=== PATIENT | female | born 1950 | race African-American/Black ===

== ENCOUNTER 2016-03-03 17:30 | Observation (INO) | payer MEDICARE ==
[2016-03-03 17:58] LABS: ABG Draw Site Left Radial; ALLEN'S TEST PASS; BEb -4.5 (+/- 2)
--- NOTE | 2016-03-03 18:24 | DIRPT ---
CLINICAL DATA: Code stroke. Fell. Hit head. Patient unresponsive. EXAM: CT HEAD WITHOUT CONTRAST TECHNIQUE: Contiguous axial images were obtained from the base of the skull through the vertex without intravenous contrast. COMPARISON: None. FINDINGS: Age advanced cerebral atrophy, ventriculomegaly and periventricular white matter disease. No extra-axial fluid collections are identified. No CT findings for acute hemispheric infarction or intracranial hemorrhage. No mass lesions. The brainstem and cerebellum are normal. No acute bony findings. No skull fracture. The paranasal sinuses and mastoid air cells are clear. The globes are intact. IMPRESSION: Age advanced cerebral atrophy, ventriculomegaly and periventricular white matter disease. No acute findings. Electronically Signed By: Joanna Bustos M.D. On: 03/03/2016 18:22
--- NOTE | 2016-03-03 18:36 | EDPRACDOC ---
- General Information Stated Complaint: FALL Time Seen by Provider: 03/03/16 17:36 Information Source: Patient, [employer] Mode Of Arrival: Ambulance Home Medications: Home Medications Atorvastatin Calcium [Lipitor] 20 mg PO DAILY 01/21/16 Docusate Sodium 100 mg PO DAILY 01/21/16 Duloxetine [Cymbalta] 60 mg PO QAM 01/21/16 Ferrous Sulfate [Iron] 325 mg PO DAILY 01/21/16 Furosemide [Lasix] 40 mg PO DAILY 01/21/16 Gabapentin 100 mg PO TID 01/21/16 Glimepiride [Amaryl] 2 mg PO DAILY 01/21/16 Trazodone HCl 50 mg PO HS 01/21/16 Amlodipine Besylate [Norvasc] 2.5 mg PO DAILY 01/27/16 Insulin Glargine [Lantus] 20 units SQ QHS 01/27/16 Divalproex Sodium [Depakote Sprinkle] 1,000 mg PO DAILY #100 cap 01/28/16 Alprazolam [Xanax] 1 mg PO HS PRN 03/03/16 Polyethylene Glycol 3350 [Miralax] 17 gm PO DAILY PRN 03/03/16 Allergies/Adverse Reactions: Allergies Allergy/AdvReac Type Severity Reaction Status Date / Time cephalexin [From Keflex] Allergy Rash-Genera Verified 03/03/16 18:53 lized codeine Allergy Rash-Genera Verified 03/03/16 18:53 lized - History of Present Illness Onset: HOST/HOSTESS GROUND HPI: PT WAS GETTING OUT OF A [employer]AXI AT THE [employer] TO TAKE PAPERS OUT ON SOMEONE. SHE USES A WALKER AND SAID HER LEG WAS NOT WORKING. SHE FELL AND HIT HER HEAD. PT DID NOT LOSE CONSCIOUSNESS. SHE IS VERY SOMNOLENT ON EXAM AND IS UNABLE TO GIVE MUCH HX. THE ONLY TIME PT HAS BEEN HERE WAS FOR PSYCHIATRIC ISSUES. THERE IS NO FAMILY HERE TO HELP WITH HX. Duration: Since Injury Presyncopal phase:: Reports: None Syncopal phase:: Reports: With standing Postsyncopal phase:: Reports: Rapid recovery Prehospital care: Reports: IV, Moniter Associated Signs/Symptoms: Reports: None ED Past Medical History - Patient Medical History Neurological History: Reports: Dementia Cardiac History: Reports: Hypertension Psychological History: Denies: Depression Systemic History: Reports: Cancer (Rt breast), Diabetes Surgical History: Reports: Cholecystectomy, Tonsillectomy/Adnoidectomy - Social Medical History Smoking Status: Heavy tobacco smoker (5 or more cigarettes/day or daily pipe/ cigar) ETOH: None Substance Abuse: None Lives In: Home EDM Review of Systems - Review of Systems ROS Unobtainable: Yes Review of systems cannot be obtained due to the patient's medical condition - Physical Exam Constitutional: No apparent distress, Somnolent Oriented to: Person Last recorded Vital Signs: Oxygen Pulse Oxygen Saturation O2 Device Oxygen Flow Rate Fraction of Inspired Oxygen ( FIO2) - HEENT Head: Abrasion Eye Exam: Normal (PERRL, EOMI, Sclera white) Oropharynx: Normal (Pharynx:Moist without exudate,Gums-no swelling) ENT EAC: Normal TMJ: Normal Nose: No Symptoms Reported (septum midline) Neck: Normal (FROM, trachea at midline) - Respiratory/Cardiovascular Respiratory: Normal - CTA (BBS clear to auscultation without adventitious sounds ) Cardiovascular: Normal (RRR without murmur, gallop or rub) - GI Auscultation: Normal (NABS) Palpation: Normal (Soft,No rebound or guarding, non distended) Tenderness: Non tender Markham's Sign: Negative - Musculoskeletal Back: Normal (Non-Tender) Extremities: Normal (Normal tone, Pulses 2+ No cyanosis or edema, FROM) - Integumentary Skin: Normal, Warm, Dry Lymphatics: Normal (no adenopathy) - Neurologic Memory Impaired: Unable to Test Motor Function: Normal - Results 03/03/16 18:30 03/03/16 18:30 Puncture Site Left radial 03/03/16 17:50 pH 7.310 pH UNITS (7.35-7.45) L 03/03/16 17:50 pCO2 43.0 mmHg (35-45) 03/03/16 17:50 pO2 59.0 mmHg (80-100) L 03/03/16 17:50 HCO3 21.7 MMOL/L (22-26) L 03/03/16 17:50 Total CO2 23.0 MMOL/L (23-27) 03/03/16 17:50 Base Excess -4.5 (+/- 2) L 03/03/16 17:50 FiO2 % 0.21 03/03/16 17:50 Specimen Drawn By [facility] 03/03/16 17:50 Lab Results 03/03/16 17:50 Puncture Site Left radial pH 7.310 L pCO2 43.0 pO2 59.0 L HCO3 21.7 L Total CO2 23.0 Base Excess -4.5 L FiO2 % 0.21 Specimen Drawn By [facility] - EKG EKG #1 EKG Time: 18:32 -: Yes EKG interpreted by me Rate: bpm: 76 [place]: Normal Rhythm: NSR Block: None Hypertrophy: None ST: Normal Comparison: 01/27/16 - Diagnostic Imaging Head Image interpreted by: Radiologist Age advanced cerebral atrophy, ventriculomegaly and periventricular white matter disease. No acute findings. Chest Image interpreted by: Radiologist Borderline heart size. Suboptimal inspiration. No acute cardiopulmonary disease. - Additional Information PT HAS BEEN SLEEPING THE WHOLE TIME SHE WAS HERE. SHE WILL OPEN HER EYES BRIEFLY, BUT WILL FALL BACK ASLEEP. PT WILL BE SENT TO THE FOR OBS TO RE- EVALUATE WHEN SHE WAKES UP. IT IS UNCLEAR IF SHE OD'D ON BZD. - Departure Yes I personally saw and evaluated the patient. Disposition: Admit to Condition: Fair Final Diagnosis: Benzodiazepine (tranquilizer) overdose, Forehead abrasion Education/Counseling Given To: Patient Education/Counseling Given Regarding: Diagnosis, Treatment
[2016-03-03 18:41] VITALS: BMI 31.6
[2016-03-03 18:46] LABS: AUTOMATED EOSINOPHIL 2.2 % (0-5)
--- NOTE | 2016-03-03 18:49 | DIRPT ---
CLINICAL DATA: 65-year-old who [place], striking her head without loss of consciousness. EXAM: PORTABLE CHEST 1 VIEW COMPARISON: None. FINDINGS: Suboptimal inspiration accounts for crowded bronchovascular markings, especially in the bases, and accentuates the cardiac silhouette. Taking this into account, cardiac silhouette mildly enlarged for AP portable technique. Lungs clear. Bronchovascular markings normal. Pulmonary vascularity normal. No visible pleural effusions. No pneumothorax. Surgical clips in the right axilla from prior node dissection. IMPRESSION: Borderline heart size. Suboptimal inspiration. No acute cardiopulmonary disease. Electronically Signed By: Dagoberto Prado M.D. On: 03/03/2016 18:46
[2016-03-03 18:54] LABS: AUTOMATED LYMPH 32.4 % (17-44); AUTOMATED MONOCYTE 11.1 % (3-10); AUTOMATED NEUTROPHIL 53.3 % (45-76); MPV 10.8 fL (7.4-10.4)
[2016-03-03 19:03] LABS: PARTIAL THROMB. TIME 18.8 SEC (22-35)
[2016-03-03 19:45] LABS: ALL NEG? NO
[2016-03-03 19:54] LABS: MDMA* NEG (NEGATIVE); METHAMPHETAMINES NEG (NEGATIVE); OXYCODONE NEG (NEGATIVE)
[2016-03-03 19:57] LABS: LEUKOCYTES/URINE NEG (NEGATIVE); NITRITE/URINE NEG (NEGATIVE); URINE OCCULT BLOOD NEG (NEG/TRACE)
[2016-03-03 20:16] LABS: BLOOD UREA NITROGEN 38 MG/DL (7-17); CALCIUM 9.3 MG/DL (8.4-10.2); CALCULATED OSMOLALITY 283 MOs/Kg (270-290); CHLORIDE 105 mEq/L (98-107); GLUCOSE 119 MG/DL (70-99); SODIUM LEVEL 142 mEq/L (137-146); TOTAL PROTEIN 8.4 G/DL (6.3-8.2)
[2016-03-03] MEDS ORDERED: Docusate Sodium 100 MG CAP PO PRN (21:17)
[2016-03-03] MEDS ORDERED: ONDANSETRON HCL 4 MG ODT TAB PO PRN (21:17)
[2016-03-03] MEDS ORDERED: GUAIFENESIN 200 MG/10 ML UDC PO PRN (21:17)
[2016-03-03] MEDS ORDERED: MAGNESIUM HYDROXIDE 30 ML BOTTLE PO PRN (21:17)
[2016-03-03] MEDS ORDERED: GLARGINE INSULIN (LANTUS) 100 UNITS/ML PEN SQ SCH (22:00)
[2016-03-04] MEDS ORDERED: SODIUM CHLORIDE 0.9% 10 ML FLUSH FLUSH ONE (00:04)
[2016-03-04] MEDS ORDERED: GLIMEPIRIDE 2 MG TAB PO SCH (07:00)
[2016-03-04 07:20] VITALS: TEMP 98.1
[2016-03-04] MEDS ORDERED: Docusate Sodium 100 MG CAP PO SCH (09:00)
[2016-03-04] MEDS ORDERED: ATORVASTATIN 20 MG TAB PO SCH (09:00)
[2016-03-04] MEDS ORDERED: Non-Formulary Medication ITEM (Ferrous Sulfate [Iron] 325 MG) PO SCH (09:00)
[2016-03-04] MEDS ORDERED: DULOXETINE 60 MG CAPSULE PO SCH (09:00)
[2016-03-04] MEDS ORDERED: AMLODIPINE 2.5 MG TAB PO SCH (09:00)
[2016-03-04] MEDS ORDERED: DIVALPROEX SODIUM 125 MG CAP PO SCH (09:00)
[2016-03-04] MEDS ORDERED: FUROSEMIDE 40 MG TAB PO SCH (09:00)
[2016-03-04] MEDS ORDERED: FERROUS SULFATE 324 MG TAB PO SCH (12:00)
[2016-03-04 12:46] VITALS: BP 139/65; PULSE 97
[2016-03-04] MEDS ORDERED: GLARGINE INSULIN (LANTUS) 100 UNITS/ML PEN SQ SCH (21:00)
[2016-03-04] MEDS ORDERED: Non-Formulary Medication ITEM (Insulin Glargine 20 UNITS) SQ SCH (21:00)
== END 2016-03-04 12:42 | disposition home or self-care (01) ==
LOC: ED 17:30 → TUOBSINP 21:17
PROVIDERS: ADMIT Emergency Medicine; ATTEND Emergency Medicine
DX: T42.4X1A Poisoning by benzodiazepines, accidental (unintentional), initial encounter (principal); S00.81XA Abrasion of other part of head, initial encounter; V48.4XXA Person boarding or alighting a car injured in noncollision transport accident, initial encounter; F03.90 Unspecified dementia, unspecified severity, without behavioral disturbance, psychotic disturbance, mood disturbance, and anxiety; I10 Essential (primary) hypertension; E11.9 Type 2 diabetes mellitus without complications; F17.210 Nicotine dependence, cigarettes, uncomplicated; Z91.81 History of falling; Z79.4 Long term (current) use of insulin; Z79.899 Other long term (current) drug therapy
CPT/HCPCS: 36415; 36600; 70450; 71010; 80053; 80164; 80307; 81001; 82803; 82962; 84484; 85025; 85610; 85730; 93005; 99284; A4216; A9270; G0378; J3490